=== PATIENT | female | born 1935 | race Two or more races ===

== ENCOUNTER 2023-11-18 12:12 | Inpatient (IN) | payer OTHER ==
[~2023-11-18] VITALS: Ht 167.6 cm; Wt 50.2 kg
[2023-11-18 15:28] LABS: Basophils # (auto) 0 10 ^3/uL (0-0.2); Basophils % (auto) 0.2 % (0.0-2.0); Eosinophils # (auto) 0 10 ^3/uL (0-0.8); Hematocrit 42.5 % (36.0-46.0); Hemoglobin 14.4 g/dL (12.2-16.2); Lymphocytes # (auto) 0.5 10 ^3/uL (0.4-5.4); Mean Corpuscular Hemoglobin 30.1 pg (28.0-32.0); Mean Corpuscular Hgb Conc. 33.8 g/dL (32.0-36.0); Mean Corpuscular Volume 89.1 fL (80.0-100.0); Monocytes # (auto) 0.4 10 ^3/uL (0-1.3); Monocytes % (auto) 6.5 % (0.0-12.0); Neutrophils # (auto) 4.7 10 ^3/uL (1.6-8.6); Neutrophils % (auto) 84.3 % (37.0-80.0); Nucleated Red Blood Cells % 0.1 %; Red Blood Cells 4.77 10^6/uL (4.0-5.20); Red Cell Distribution Width 14.1 % (11.8-14.3); White Blood Cell 5.5 10^3/uL (4.4-10.8)
[2023-11-18 15:37] LABS: Alanine Aminotransferase 17 U/L (7-40); Albumin 4.5 g/dL (3.2-4.8); Alkaline Phosphatase 73 U/L (46-116); Anion Gap 10 (5-15); Aspartate Aminotransferase 22 U/L (13-40); BUN/Creatinine Ratio 57.6 (10.0-20.0); Bilirubin, Total 0.7 mg/dL (0.2-1.0); Blood Urea Nitrogen 34 mg/dL (9-23); Calcium 9.2 mg/dL (8.7-10.4); Carbon Dioxide 24 mmol/L (20-30); Chloride 109 mmol/L (98-107); Glucose 127 mg/dL (74-106); Potassium 3.9 mmol/L (3.5-5.1); Sodium 143 mmol/L (136-145); Total Protein 6.8 g/dL (5.7-8.2)
[2023-11-18] MEDS ORDERED: SODIUM CHLORIDE 0.9% 500 ML IV ONE (16:15)
[2023-11-18] MEDS ORDERED: cefTRIAXone 1GM/50ML D5W 50 ML IV ONE (18:00)
[2023-11-18] MEDS ORDERED: LORazepam 2MG/ML-1ML VIAL IV ONE (18:30)
[2023-11-18] MEDS ORDERED: AZITHROMYCIN 500MG/ 250ML 250 ML IV ONE (18:45)
[2023-11-18 21:00] VITALS: PULSE 66; RESP 18; O2SAT 92
[2023-11-19] MEDS ORDERED: ONDANSETRON HCL 4 MG/2 ML VIAL IV PRN (02:45)
[2023-11-19] MEDS ORDERED: ACETAMINOPHEN 325 MG TAB PO PRN (02:45)
[2023-11-19 07:40] LABS: Urine Epithelial Cast None Seen /hpf (<5)
[2023-11-19 07:53] VITALS: PULSE 54; RESP 22; O2SAT 93
[2023-11-19 08:02] LABS: Urine Bacteria NONE SEEN /hpf (None Seen); Urine Blood Negative /uL (Negative); Urine Clarity Clear (Clear); Urine Color Yellow (Yellow); Urine Mucus FEW (None Seen); Urine Protein, UAD 1+ (Negative); Urine Specific Gravity 1.024 (1.001-1.035); Urine WBC 11 /hpf (0 - 5)
[2023-11-19 08:07] LABS: Amphetamine Screen, Urine Neg (NEGATIVE); Barbiturate Scree,Urine Neg (NEGATIVE); Benzodiazephine Screen, Urine Pos (NEGATIVE); Cocaine Screen, Urine Neg (NEGATIVE)
[2023-11-19 08:08] LABS: Cannabinoid Screen, Urine Neg (NEGATIVE); Opiate Scree,Urine Neg (NEGATIVE); Phencyclidine Screen, Urine Neg (NEGATIVE)
[2023-11-19] MEDS: ENOXAPARIN SOD 40 MG/0.4 ML SYRINGE SC SCH (09:22)
[2023-11-19 10:00] LABS: Base Excess -1.1 mmol/L (-2.0-2.0)
[2023-11-19] MEDS: ALBUTEROL SULF 2.5 MG/0.5ML(0.5%) NEB SOLN NEB SCH ×3 (13:19→22:25)
[2023-11-19] MEDS: IPRATROPIUM BROM 0.5 MG/2.5ML INH SOL NEB SCH ×3 (13:19→22:25)
[2023-11-19] MEDS: LORazepam 2MG/ML-1ML VIAL IV PRN ×2 (14:27→18:36)
[2023-11-19 14:56] VITALS: BP 108/60; PULSE 55; RESP 20; O2SAT 95
[2023-11-19] MEDS: cefTRIAXone 1GM/50ML D5W 50 ML IV SCH (17:56)
[2023-11-19] MEDS: AZITHROMYCIN 500MG/ 250ML 250 ML IV SCH (18:39)
[2023-11-19 19:35] VITALS: PULSE 66; RESP 21; O2SAT 91
[2023-11-19 23:34] VITALS: BP 114/62; TEMP 98.6
[2023-11-20] VITALS (13 sets, daily range): BP systolic 108–123; BP diastolic 55–73; PULSE 62–89; RESP 16–22; TEMP 98–100.1; O2SAT 91–100
[2023-11-20] MEDS: ALBUTEROL SULF 2.5 MG/0.5ML(0.5%) NEB SOLN NEB SCH ×6 (01:41→22:56)
[2023-11-20] MEDS: LORazepam 2MG/ML-1ML VIAL IV PRN ×4 (04:29→22:06)
[2023-11-20] MEDS: IPRATROPIUM BROM 0.5 MG/2.5ML INH SOL NEB SCH ×5 (06:20→22:56)
[2023-11-20 06:59] LABS: Anion Gap 7 (5-15); BUN/Creatinine Ratio 30.3 (10.0-20.0); Blood Urea Nitrogen 20 mg/dL (9-23); Calcium 8.7 mg/dL (8.7-10.4); Carbon Dioxide 23 mmol/L (20-30); Chloride 113 mmol/L (98-107); Glucose 141 mg/dL (74-106); Potassium 3.2 mmol/L (3.5-5.1); Sodium 143 mmol/L (136-145)
[2023-11-20] MEDS: ENOXAPARIN SOD 40 MG/0.4 ML SYRINGE SC SCH (10:00)
[2023-11-20] MEDS ORDERED: POTASSIUM CHLORIDE 20 MEQ, LIDOCAINE 1% (LOCAL ANESTH.) 2 ML in SODIUM CHL 0.9% 100 ML IV ONE (15:00)
[2023-11-20] MEDS ORDERED: CLINIMIX PER PHARMACY 0 ML IV SCH (15:00)
[2023-11-20] MEDS ORDERED: ACETAMINOPHEN 650 MG RECT SUPP PR PRN (15:30)
[2023-11-20] MEDS: D5W/SOD CHL 0.45%/KCL 20MEQ 1,000 ML IV SCH (16:28)
[2023-11-20 16:35] LABS: Magnesium 2.2 mg/dL (1.6-2.6)
[2023-11-20 16:37] LABS: Phosphorus 2.5 mg/dL (2.4-5.1)
[2023-11-20] MEDS: cefTRIAXone 1GM/50ML D5W 50 ML IV SCH (17:16)
[2023-11-20] MEDS: AZITHROMYCIN 500MG/ 250ML 250 ML IV SCH (19:00)
[2023-11-20] MEDS ORDERED: AMINO ACID INFUSION IN D10W 1,000 ML IV NR (20:00)
[2023-11-21] VITALS (20 sets, daily range): BP systolic 104–145; BP diastolic 63–77; PULSE 61–99; RESP 16–30; TEMP 97.8–101.2; O2SAT 91–100
[2023-11-21] MEDS ORDERED: DEXTROSE (50%) 50ML SYRG IV SCH
[2023-11-21] MEDS: ALBUTEROL SULF 2.5 MG/0.5ML(0.5%) NEB SOLN NEB SCH ×6 (01:48→22:17)
[2023-11-21] MEDS: D5W/SOD CHL 0.45%/KCL 20MEQ 1,000 ML IV SCH ×2 (04:20→17:57)
[2023-11-21] MEDS: InsuLIN REG 1unit/0.01ml Soln (100units/ml) SC SCH ×5 (06:00→23:42)
[2023-11-21] MEDS: ACCU-CHEK COMFORT CURVE STRIP VI SCH ×5 (06:00→23:39)
[2023-11-21] MEDS: IPRATROPIUM BROM 0.5 MG/2.5ML INH SOL NEB SCH ×5 (06:08→22:17)
[2023-11-21 08:35] LABS: Alanine Aminotransferase 19 U/L (7-40); Albumin 3.7 g/dL (3.2-4.8); Alkaline Phosphatase 49 U/L (46-116); Anion Gap 7 (5-15); Aspartate Aminotransferase 33 U/L (13-40); BUN/Creatinine Ratio 24.6 (10.0-20.0); Blood Urea Nitrogen 16 mg/dL (9-23); Calcium 8.9 mg/dL (8.5-10.1); Carbon Dioxide 25 mmol/L (20-30); Chloride 116 mmol/L (98-107); Glucose 135 mg/dL (74-106); Phosphorus 1.9 mg/dL (2.4-5.1); Potassium 3.2 mmol/L (3.5-5.1)
[2023-11-21 08:36] LABS: Bilirubin, Total 0.6 mg/dL (0.2-1.0)
[2023-11-21 08:42] LABS: Sodium 148 mmol/L (136-145)
[2023-11-21 09:05] LABS: Magnesium 2.1 mg/dL (1.6-2.6)
[2023-11-21] MEDS ORDERED: HALOPERIDOL LACTATE 5 MG/ML INJ VIAL IM ONE (13:30)
[2023-11-21] MEDS ORDERED: POTASSIUM CHLORIDE 40 MEQ, LIDOCAINE 1% (LOCAL ANESTH.) 4 ML in SODIUM CHL 0.9% 250 ML IV ONE (13:30)
[2023-11-21] MEDS ORDERED: POTASSIUM CHLORIDE 20 MEQ, LIDOCAINE 1% (LOCAL ANESTH.) 2 ML in SODIUM CHL 0.9% 100 ML IV ONE (14:15)
[2023-11-21] MEDS: ENOXAPARIN SOD 40 MG/0.4 ML SYRINGE SC SCH (14:53)
[2023-11-21] MEDS ORDERED: POTASSIUM PHOSPHATE 22 MEQ in SODIUM CHL 0.9% 100 ML IV ONE (17:00)
[2023-11-21] MEDS: cefTRIAXone 1GM/50ML D5W 50 ML IV SCH ×2 (17:58→18:00)
[2023-11-21] MEDS: AMINO ACID INFUSION IN D10W 1,000 ML IV SCH (20:36)
[2023-11-21] MEDS: AZITHROMYCIN 500MG/ 250ML 250 ML IV SCH (21:00)
[2023-11-21] MEDS: LORazepam 2MG/ML-1ML VIAL IV PRN (21:56)
[2023-11-22] VITALS (13 sets, daily range): BP systolic 117–153; BP diastolic 63–86; PULSE 60–81; RESP 18–28; TEMP 96.9–100.1; O2SAT 91–98
[2023-11-22] MEDS: ALBUTEROL SULF 2.5 MG/0.5ML(0.5%) NEB SOLN NEB SCH ×2 (02:18→06:46)
[2023-11-22] MEDS: D5W/SOD CHL 0.45%/KCL 20MEQ 1,000 ML IV SCH ×2 (05:11→20:20)
[2023-11-22] MEDS: ACCU-CHEK COMFORT CURVE STRIP VI SCH ×4 (05:14→23:36)
[2023-11-22] MEDS: InsuLIN REG 1unit/0.01ml Soln (100units/ml) SC SCH ×4 (05:22→23:38)
[2023-11-22] MEDS: IPRATROPIUM BROM 0.5 MG/2.5ML INH SOL NEB SCH (06:46)
[2023-11-22 06:48] LABS: Basophils # (auto) 0 10 ^3/uL (0-0.2); Basophils % (auto) 0.1 % (0.0-2.0); Eosinophils # (auto) 0 10 ^3/uL (0-0.8); Eosinophils % (auto) 0.1 % (0.0-7.0); Hematocrit 38.9 % (36.0-46.0); Hemoglobin 13.2 g/dL (12.2-16.2); Lymphocytes # (auto) 0.4 10 ^3/uL (0.4-5.4); Lymphocytes % (auto) 11.1 % (10.0-50.0); Mean Corpuscular Hemoglobin 30.3 pg (28.0-32.0); Mean Corpuscular Hgb Conc. 33.9 g/dL (32.0-36.0); Mean Corpuscular Volume 89.3 fL (80.0-100.0); Monocytes # (auto) 0.3 10 ^3/uL (0-1.3); Neutrophils # (auto) 2.7 10 ^3/uL (1.6-8.6); Neutrophils % (auto) 80.7 % (37.0-80.0); Nucleated Red Blood Cells % 0.1 %; Red Blood Cells 4.35 10^6/uL (4.0-5.20); White Blood Cell 3.4 10^3/uL (4.4-10.8)
[2023-11-22 07:05] LABS: Alanine Aminotransferase 24 U/L (7-40); Albumin 3.7 g/dL (3.2-4.8); Alkaline Phosphatase 49 U/L (46-116); Anion Gap 9 (5-15); Aspartate Aminotransferase 33 U/L (13-40); BUN/Creatinine Ratio 24.5 (10.0-20.0); Bilirubin, Total 0.6 mg/dL (0.2-1.0); Blood Urea Nitrogen 13 mg/dL (9-23); Calcium 8.1 mg/dL (8.7-10.4); Carbon Dioxide 22 mmol/L (20-30); Chloride 116 mmol/L (98-107); Glucose 193 mg/dL (74-106); Phosphorus 1.3 mg/dL (2.4-5.1); Potassium 2.9 mmol/L (3.5-5.1); Sodium 147 mmol/L (136-145); Total Protein 6.1 g/dL (5.7-8.2)
[2023-11-22] MEDS ORDERED: ALBUTEROL SULF 2.5 MG/0.5ML(0.5%) NEB SOLN NEB PRN (10:00)
[2023-11-22] MEDS: ENOXAPARIN SOD 40 MG/0.4 ML SYRINGE SC SCH (10:00)
[2023-11-22] MEDS ORDERED: IPRATROPIUM BROM 0.5 MG/2.5ML INH SOL NEB PRN (10:00)
[2023-11-22] MEDS ORDERED: POTASSIUM PHOSPHATE 44 MEQ in D5W 5% 250 ML IV ONE (10:45)
[2023-11-22] MEDS ORDERED: CALCIUM GLUC 1,000mg/50ml-NS 50 ML IV ONE (10:45)
[2023-11-22 17:00] LABS: Alanine Aminotransferase 28 U/L (7-40); Albumin 3.9 g/dL (3.2-4.8); Alkaline Phosphatase 51 U/L (46-116); Anion Gap 6 (5-15); Aspartate Aminotransferase 46 U/L (13-40); Blood Urea Nitrogen 13 mg/dL (9-23); Calcium 8.6 mg/dL (8.7-10.4); Carbon Dioxide 27 mmol/L (20-30); Chloride 113 mmol/L (98-107); Glucose 123 mg/dL (74-106); Potassium 3.6 mmol/L (3.5-5.1); Sodium 146 mmol/L (136-145)
[2023-11-22 17:01] LABS: Bilirubin, Total 0.7 mg/dL (0.2-1.0); Total Protein 6.1 g/dL (5.7-8.2)
[2023-11-22] MEDS: cefTRIAXone 1GM/50ML D5W 50 ML IV SCH (18:00)
[2023-11-22] MEDS: AMINO ACID INFUSION IN D10W 1,000 ML IV SCH (20:15)
[2023-11-22] MEDS: AZITHROMYCIN 500MG/ 250ML 250 ML IV SCH (21:06)
[2023-11-23] VITALS (7 sets, daily range): BP systolic 97–138; BP diastolic 43–81; PULSE 68–105; RESP 19–22; TEMP 97.8–98.6; O2SAT 94–96
[2023-11-23] MEDS: D5W/SOD CHL 0.45%/KCL 20MEQ 1,000 ML IV SCH ×2 (02:16→23:00)
[2023-11-23] MEDS: InsuLIN REG 1unit/0.01ml Soln (100units/ml) SC SCH ×3 (05:31→18:00)
[2023-11-23] MEDS: ACCU-CHEK COMFORT CURVE STRIP VI SCH ×3 (05:31→18:40)
[2023-11-23 06:34] LABS: Alanine Aminotransferase 41 U/L (7-40); Alkaline Phosphatase 49 U/L (46-116); Anion Gap 10 (5-15); BUN/Creatinine Ratio 22.9 (10.0-20.0); Blood Urea Nitrogen 11 mg/dL (9-23); Calcium 8.4 mg/dL (8.7-10.4); Carbon Dioxide 23 mmol/L (20-30); Chloride 110 mmol/L (98-107); Glucose 109 mg/dL (74-106); Potassium 3.2 mmol/L (3.5-5.1); Sodium 143 mmol/L (136-145)
[2023-11-23 06:35] LABS: Albumin 3.6 g/dL (3.2-4.8); Aspartate Aminotransferase 61 U/L (13-40); Bilirubin, Total 0.7 mg/dL (0.2-1.0); Total Protein 5.8 g/dL (5.7-8.2)
[2023-11-23 07:23] LABS: Magnesium 1.7 mg/dL (1.6-2.6)
[2023-11-23] MEDS: ENOXAPARIN SOD 40 MG/0.4 ML SYRINGE SC SCH (08:36)
[2023-11-23] MEDS ORDERED: MAGNESIUM SULFATE 1GM/100ML 100 ML IV ONE (13:00)
[2023-11-23] MEDS ORDERED: POTASSIUM CHLORIDE 40 MEQ, LIDOCAINE 1% (LOCAL ANESTH.) 4 ML in SODIUM CHL 0.9% 250 ML IV ONE (13:45)
[2023-11-23] MEDS ORDERED: POTASSIUM PHOSPHATE 44 MEQ in D5W 5% 250 ML IV ONE (14:00)
[2023-11-23] MEDS: LORazepam 2MG/ML-1ML VIAL IV PRN (18:40)
[2023-11-23] MEDS: cefTRIAXone 1GM/50ML D5W 50 ML IV SCH (18:40)
[2023-11-23] MEDS ORDERED: FUROSEMIDE 20 MG/2 ML VIAL IV ONE (19:30)
[2023-11-23] MEDS: AMINO ACID INFUSION IN D10W 1,000 ML IV SCH (20:23)
[2023-11-23] MEDS: AZITHROMYCIN 500MG/ 250ML 250 ML IV SCH (21:57)
[2023-11-24] VITALS (12 sets, daily range): BP systolic 119–146; BP diastolic 66–94; PULSE 68–83; RESP 16–24; TEMP 96.8–99; O2SAT 85–99
[2023-11-24] MEDS: ACCU-CHEK COMFORT CURVE STRIP VI SCH ×4 (05:52→17:26)
[2023-11-24] MEDS: InsuLIN REG 1unit/0.01ml Soln (100units/ml) SC SCH ×4 (05:57→17:26)
[2023-11-24 06:52] LABS: Alanine Aminotransferase 59 U/L (7-40); Albumin 3.5 g/dL (3.2-4.8); Alkaline Phosphatase 49 U/L (46-116); Anion Gap 9 (5-15); Aspartate Aminotransferase 64 U/L (13-40); BUN/Creatinine Ratio 18.9 (10.0-20.0); Blood Urea Nitrogen 10 mg/dL (9-23); Calcium 8.2 mg/dL (8.7-10.4); Carbon Dioxide 24 mmol/L (20-30); Chloride 107 mmol/L (98-107); Glucose 188 mg/dL (74-106); Magnesium 1.8 mg/dL (1.6-2.6); Potassium 4.1 mmol/L (3.5-5.1); Sodium 140 mmol/L (136-145)
[2023-11-24 06:53] LABS: Bilirubin, Total 0.5 mg/dL (0.2-1.0); Phosphorus 2.5 mg/dL (2.4-5.1); Total Protein 5.7 g/dL (5.7-8.2)
[2023-11-24 10:00] LABS: Basophils # (auto) 0 10 ^3/uL (0-0.2); Basophils % (auto) 0.3 % (0.0-2.0); Eosinophils # (auto) 0.1 10 ^3/uL (0-0.8); Eosinophils % (auto) 1.4 % (0.0-7.0); Hematocrit 37.9 % (36.0-46.0); Hemoglobin 12.8 g/dL (12.2-16.2); Lymphocytes # (auto) 0.5 10 ^3/uL (0.4-5.4); Lymphocytes % (auto) 8.5 % (10.0-50.0); Mean Corpuscular Hemoglobin 29.7 pg (28.0-32.0); Mean Corpuscular Hgb Conc. 33.8 g/dL (32.0-36.0); Mean Corpuscular Volume 87.9 fL (80.0-100.0); Monocytes # (auto) 0.4 10 ^3/uL (0-1.3); Monocytes % (auto) 7.3 % (0.0-12.0); Neutrophils # (auto) 4.9 10 ^3/uL (1.6-8.6); Neutrophils % (auto) 82.5 % (37.0-80.0); Nucleated Red Blood Cells % 0.1 %; Red Blood Cells 4.31 10^6/uL (4.0-5.20); Red Cell Distribution Width 14.2 % (11.8-14.3)
[2023-11-24] MEDS ORDERED: IOHEXOL 350 MG/ML 100ML IJ ONE (12:06)
[2023-11-24] MEDS ORDERED: SODIUM PHOSPHATES 20 MEQ in SODIUM CHL 0.9% 100 ML IV ONE (12:15)
[2023-11-24] MEDS: IPRATROPIUM BROM 0.5 MG/2.5ML INH SOL NEB SCH ×2 (12:17→18:08)
[2023-11-24] MEDS: ALBUTEROL SULF 2.5 MG/0.5ML(0.5%) NEB SOLN NEB SCH ×2 (12:17→18:08)
[2023-11-24] MEDS: PIPERACILLIN-TAZOB 3.375GM 100 ML IV SCH ×3 (12:24→22:53)
[2023-11-24] MEDS: ENOXAPARIN SOD 40 MG/0.4 ML SYRINGE SC SCH (12:24)
[2023-11-24] MEDS: D5W/SOD CHL 0.45%/KCL 20MEQ 1,000 ML IV SCH (15:19)
[2023-11-24] MEDS: AMINO ACID INFUSION IN D10W 1,000 ML IV SCH (20:38)
[2023-11-25] VITALS (17 sets, daily range): BP systolic 98–128; BP diastolic 53–86; PULSE 60–97; RESP 16–52; TEMP 97.4–98; O2SAT 92–98
[2023-11-25] MEDS: IPRATROPIUM BROM 0.5 MG/2.5ML INH SOL NEB SCH ×4 (00:05→19:22)
[2023-11-25] MEDS: ALBUTEROL SULF 2.5 MG/0.5ML(0.5%) NEB SOLN NEB SCH ×4 (00:05→19:21)
[2023-11-25] MEDS: D5W/SOD CHL 0.45%/KCL 20MEQ 1,000 ML IV SCH ×2 (01:40→15:00)
[2023-11-25] MEDS: PIPERACILLIN-TAZOB 3.375GM 100 ML IV SCH ×3 (05:53→21:50)
[2023-11-25] MEDS: ACCU-CHEK COMFORT CURVE STRIP VI SCH ×4 (06:01→18:09)
[2023-11-25 06:02] LABS: Hematocrit 35.6 % (36.0-46.0); Hemoglobin 12.2 g/dL (12.2-16.2); Mean Corpuscular Hemoglobin 30.1 pg (28.0-32.0); Mean Corpuscular Hgb Conc. 34.1 g/dL (32.0-36.0); Mean Corpuscular Volume 88.3 fL (80.0-100.0); Red Blood Cells 4.04 10^6/uL (4.0-5.20); Red Cell Distribution Width 14.1 % (11.8-14.3); White Blood Cell 5.3 10^3/uL (4.4-10.8)
[2023-11-25] MEDS: InsuLIN REG 1unit/0.01ml Soln (100units/ml) SC SCH ×4 (06:04→18:00)
[2023-11-25 06:05] LABS: Alanine Aminotransferase 61 U/L (7-40); Alkaline Phosphatase 49 U/L (46-116); Anion Gap 11 (5-15); Aspartate Aminotransferase 59 U/L (13-40); BUN/Creatinine Ratio 24.6 (10.0-20.0); Blood Urea Nitrogen 14 mg/dL (9-23); Calcium 8.3 mg/dL (8.7-10.4); Carbon Dioxide 24 mmol/L (20-30); Chloride 106 mmol/L (98-107); Glucose 194 mg/dL (74-106); Magnesium 1.8 mg/dL (1.6-2.6); Potassium 3.2 mmol/L (3.5-5.1); Sodium 141 mmol/L (136-145)
[2023-11-25 06:06] LABS: Albumin 3.4 g/dL (3.2-4.8); Bilirubin, Total 0.9 mg/dL (0.2-1.0); Phosphorus 2.5 mg/dL (2.4-5.1); Total Protein 5.5 g/dL (5.7-8.2)
[2023-11-25 07:24] LABS: Basophils % (manual) 0 (0.0-2.0); Blast Cells 0; Myelocytes % 0; Promyelocytes % 0; Reactive Lymphocytes 0
[2023-11-25 08:21] LABS: Band Neutrophils % (manual) 9; Eosinophils % (manual) 3 (0-7); Lymphocytes % (manual) 12 (10.0-50.0); Metamyelocytes % 2; Monocytes % (manual) 2 (0-12); Platelet Estimate Adequate
[2023-11-25] MEDS: ENOXAPARIN SOD 40 MG/0.4 ML SYRINGE SC SCH (09:50)
[2023-11-25] MEDS: LORazepam 2MG/ML-1ML VIAL IV PRN ×2 (11:08→22:19)
[2023-11-25] MEDS ORDERED: IPRATROPIUM BROM 0.5 MG/2.5ML INH SOL NEB PRN (11:15)
[2023-11-25] MEDS ORDERED: ALBUTEROL SULF 2.5 MG/0.5ML(0.5%) NEB SOLN NEB PRN (11:15)
[2023-11-25] MEDS ORDERED: FUROSEMIDE 20 MG/2 ML VIAL IV ONE (12:00)
[2023-11-25] MEDS ORDERED: POTASSIUM CHL 20MEQ/100ML 100 ML IV ONE (15:00)
[2023-11-25 16:15] LABS: Triglycerides 100 mg/dL (< 150)
[2023-11-25 16:16] LABS: LDL Cholesterol 70 mg/dL (< 100)
[2023-11-25 16:17] LABS: Cholesterol 109 mg/dL (< 200); HDL Cholesterol 20 mg/dL (40-59)
[2023-11-25] MEDS: MAGNESIUM SULFATE 1GM/100ML 100 ML IV SCH ×2 (17:47→19:08)
[2023-11-25] MEDS ORDERED: MAGNESIUM SULFATE 1GM/100ML 100 ML IV ONE (19:08)
[2023-11-25] MEDS: AMINO ACID INFUSION IN D10W 1,000 ML IV SCH (20:22)
[2023-11-25] MEDS: methylPREDNISolone SOD SUCC 40 MG/ML VL IV SCH (21:50)
[2023-11-25] MEDS: METOPROLOL TARTRATE 25 MG TAB PO SCH (22:00)
[2023-11-26] VITALS (15 sets, daily range): BP systolic 95–119; BP diastolic 47–58; PULSE 75–93; RESP 16–36; TEMP 97.1–98.2; O2SAT 92–98
[2023-11-26] MEDS: ALBUTEROL SULF 2.5 MG/0.5ML(0.5%) NEB SOLN NEB SCH ×4 (00:01→18:18)
[2023-11-26] MEDS: IPRATROPIUM BROM 0.5 MG/2.5ML INH SOL NEB SCH ×4 (00:01→18:18)
[2023-11-26] MEDS: ACCU-CHEK COMFORT CURVE STRIP VI SCH ×5 (00:44→23:50)
[2023-11-26] MEDS: InsuLIN REG 1unit/0.01ml Soln (100units/ml) SC SCH ×5 (00:48→23:51)
[2023-11-26] MEDS: D5W/SOD CHL 0.45%/KCL 20MEQ 1,000 ML IV SCH ×3 (04:20→11:05)
[2023-11-26 06:18] LABS: Hematocrit 33.6 % (36.0-46.0); Hemoglobin 11.6 g/dL (12.2-16.2); Mean Corpuscular Hgb Conc. 34.4 g/dL (32.0-36.0); Mean Corpuscular Volume 87.1 fL (80.0-100.0); Red Blood Cells 3.86 10^6/uL (4.0-5.20); Red Cell Distribution Width 13.7 % (11.8-14.3); White Blood Cell 4.7 10^3/uL (4.4-10.8)
[2023-11-26 06:39] LABS: Alanine Aminotransferase 66 U/L (7-40); Alkaline Phosphatase 52 U/L (46-116); Anion Gap 10 (5-15); Blood Urea Nitrogen 10 mg/dL (9-23); Calcium 8.5 mg/dL (8.5-10.1); Carbon Dioxide 23 mmol/L (20-30); Chloride 105 mmol/L (98-107); Glucose 190 mg/dL (74-106); Potassium 3.1 mmol/L (3.5-5.1); Sodium 138 mmol/L (136-145)
[2023-11-26 06:40] LABS: Albumin 3.5 g/dL (3.2-4.8); Aspartate Aminotransferase 56 U/L (13-40); BUN/Creatinine Ratio 17.5 (10.0-20.0); Bilirubin, Total 0.7 mg/dL (0.2-1.0); Phosphorus 2.5 mg/dL (2.4-5.1); Total Protein 5.8 g/dL (5.7-8.2)
[2023-11-26] MEDS: PIPERACILLIN-TAZOB 3.375GM 100 ML IV SCH ×3 (06:43→22:20)
[2023-11-26] MEDS: LORazepam 2MG/ML-1ML VIAL IV PRN ×3 (06:43→21:32)
[2023-11-26 06:58] LABS: Basophils % (manual) 0 (0.0-2.0); Blast Cells 0; Eosinophils % (manual) 0 (0-7); Myelocytes % 0; Promyelocytes % 0; Reactive Lymphocytes 0
[2023-11-26 08:03] LABS: Band Neutrophils % (manual) 10; Lymphocytes % (manual) 8 (10.0-50.0); Metamyelocytes % 2; Monocytes % (manual) 3 (0-12); Smudge Cells 1 /100 WBC
[2023-11-26 08:04] LABS: Platelet Estimate Adequate
[2023-11-26] MEDS: ASPirin 81 mg TAB PO SCH (10:00)
[2023-11-26] MEDS: METOPROLOL TARTRATE 25 MG TAB PO SCH ×2 (10:00→21:31)
[2023-11-26] MEDS: ENOXAPARIN SOD 40 MG/0.4 ML SYRINGE SC SCH (10:11)
[2023-11-26] MEDS: methylPREDNISolone SOD SUCC 40 MG/ML VL IV SCH ×2 (10:12→21:31)
[2023-11-26 12:00] LABS: Magnesium 2.4 mg/dL (1.6-2.6)
[2023-11-26] MEDS ORDERED: POTASSIUM CHLORIDE 40 MEQ, LIDOCAINE 1% (LOCAL ANESTH.) 4 ML in SODIUM CHL 0.9% 250 ML IV ONE (12:15)
[2023-11-26] MEDS: AMINO ACID INFUSION IN D10W 1,000 ML IV SCH (19:58)
[2023-11-27] VITALS (15 sets, daily range): BP systolic 114–146; BP diastolic 58–130; PULSE 75–133; RESP 16–26; TEMP 98–98.2; O2SAT 85–98
[2023-11-27] MEDS: ALBUTEROL SULF 2.5 MG/0.5ML(0.5%) NEB SOLN NEB SCH ×4 (00:01→18:05)
[2023-11-27] MEDS: IPRATROPIUM BROM 0.5 MG/2.5ML INH SOL NEB SCH ×4 (00:02→18:05)
[2023-11-27] MEDS: LORazepam 2MG/ML-1ML VIAL IV PRN ×2 (04:48→10:04)
[2023-11-27] MEDS: PIPERACILLIN-TAZOB 3.375GM 100 ML IV SCH ×3 (05:45→21:55)
[2023-11-27] MEDS: ACCU-CHEK COMFORT CURVE STRIP VI SCH ×3 (06:14→18:12)
[2023-11-27] MEDS: InsuLIN REG 1unit/0.01ml Soln (100units/ml) SC SCH ×3 (06:15→18:11)
[2023-11-27 06:38] LABS: Alanine Aminotransferase 81 U/L (7-40); Alkaline Phosphatase 50 U/L (46-116); Anion Gap 10 (5-15); Calcium 8.5 mg/dL (8.7-10.4); Carbon Dioxide 20 mmol/L (20-30); Chloride 109 mmol/L (98-107); Glucose 187 mg/dL (74-106); Magnesium 2.1 mg/dL (1.6-2.6); Potassium 3.8 mmol/L (3.5-5.1); Sodium 139 mmol/L (136-145)
[2023-11-27 06:39] LABS: Albumin 3.4 g/dL (3.2-4.8); Aspartate Aminotransferase 82 U/L (13-40); BUN/Creatinine Ratio 37.5 (10.0-20.0); Bilirubin, Total 0.6 mg/dL (0.2-1.0); Blood Urea Nitrogen 21 mg/dL (9-23); Phosphorus 2.6 mg/dL (2.4-5.1); Total Protein 5.4 g/dL (5.7-8.2)
[2023-11-27 07:03] LABS: Basophils # (auto) 0 10 ^3/uL (0-0.2); Basophils % (auto) 0.1 % (0.0-2.0); Eosinophils # (auto) 0 10 ^3/uL (0-0.8); Hematocrit 32.3 % (36.0-46.0); Hemoglobin 10.8 g/dL (12.2-16.2); Lymphocytes # (auto) 0.4 10 ^3/uL (0.4-5.4); Lymphocytes % (auto) 4.1 % (10.0-50.0); Mean Corpuscular Hemoglobin 29.4 pg (28.0-32.0); Mean Corpuscular Hgb Conc. 33.6 g/dL (32.0-36.0); Mean Corpuscular Volume 87.6 fL (80.0-100.0); Monocytes # (auto) 0.6 10 ^3/uL (0-1.3); Monocytes % (auto) 6.5 % (0.0-12.0); Neutrophils # (auto) 7.6 10 ^3/uL (1.6-8.6); Neutrophils % (auto) 89.3 % (37.0-80.0); Nucleated Red Blood Cells % 0.1 %; Red Blood Cells 3.69 10^6/uL (4.0-5.20); Red Cell Distribution Width 13.6 % (11.8-14.3); White Blood Cell 8.5 10^3/uL (4.4-10.8)
[2023-11-27] MEDS: D5W/SOD CHL 0.45%/KCL 20MEQ 1,000 ML IV SCH ×2 (07:03→20:38)
[2023-11-27] MEDS: METOPROLOL TARTRATE 25 MG TAB PO SCH ×2 (10:00→21:56)
[2023-11-27] MEDS: ASPirin 81 mg TAB PO SCH (10:00)
[2023-11-27] MEDS: methylPREDNISolone SOD SUCC 40 MG/ML VL IV SCH ×2 (10:01→21:55)
[2023-11-27] MEDS: ENOXAPARIN SOD 40 MG/0.4 ML SYRINGE SC SCH (10:03)
[2023-11-27] MEDS ORDERED: cloNIDine 0.2 mg/24hr 7DAY PATCH TD ONE (11:30)
[2023-11-27] MEDS ORDERED: hydrALAZINE HCL 20 MG/ML VL IV PRN (12:30)
[2023-11-27] MEDS ORDERED: HALOPERIDOL LACTATE 5 MG/ML INJ VIAL IM ONE (14:00)
[2023-11-27] MEDS ORDERED: MET25T PO (15:18)
[2023-11-27] MEDS ORDERED: IPR002IS NEB (15:18)
[2023-11-27] MEDS ORDERED: ALB5IS NEB (15:18)
[2023-11-27] MEDS: AMINO ACID INFUSION IN D10W 1,000 ML IV SCH (20:00)
[2023-11-28] VITALS (16 sets, daily range): BP systolic 86–152; BP diastolic 41–82; PULSE 68–105; RESP 16–36; TEMP 97.9–98.7; O2SAT 83–96
[2023-11-28] MEDS: ALBUTEROL SULF 2.5 MG/0.5ML(0.5%) NEB SOLN NEB SCH ×4 (00:15→19:04)
[2023-11-28] MEDS: IPRATROPIUM BROM 0.5 MG/2.5ML INH SOL NEB SCH ×4 (00:15→19:04)
[2023-11-28] MEDS: ACCU-CHEK COMFORT CURVE STRIP VI SCH ×5 (00:34→23:33)
[2023-11-28] MEDS: InsuLIN REG 1unit/0.01ml Soln (100units/ml) SC SCH ×5 (00:40→23:35)
[2023-11-28] MEDS: LORazepam 2MG/ML-1ML VIAL IV PRN ×4 (01:27→21:38)
[2023-11-28] MEDS: PIPERACILLIN-TAZOB 3.375GM 100 ML IV SCH ×3 (05:20→23:06)
[2023-11-28 07:40] LABS: Alanine Aminotransferase 74 U/L (7-40); Alkaline Phosphatase 54 U/L (46-116); Anion Gap 12 (5-15); BUN/Creatinine Ratio 47.5 (10.0-20.0); Blood Urea Nitrogen 28 mg/dL (9-23); Calcium 8.6 mg/dL (8.7-10.4); Carbon Dioxide 21 mmol/L (20-30); Chloride 109 mmol/L (98-107); Glucose 197 mg/dL (74-106); Magnesium 2.1 mg/dL (1.6-2.6); Potassium 3.6 mmol/L (3.5-5.1); Sodium 142 mmol/L (136-145)
[2023-11-28 07:41] LABS: Aspartate Aminotransferase 51 U/L (13-40); Bilirubin, Total 0.5 mg/dL (0.2-1.0); Phosphorus 2.2 mg/dL (2.4-5.1); Total Protein 5.6 g/dL (5.7-8.2)
[2023-11-28 08:01] LABS: Albumin 3.4 g/dL (3.2-4.8)
[2023-11-28] MEDS: METOPROLOL TARTRATE 25 MG TAB PO SCH ×2 (09:35→22:00)
[2023-11-28] MEDS: ASPirin 81 mg TAB PO SCH (09:35)
[2023-11-28] MEDS: D5W/SOD CHL 0.45%/KCL 20MEQ 1,000 ML IV SCH ×2 (09:45→23:51)
[2023-11-28] MEDS: ENOXAPARIN SOD 40 MG/0.4 ML SYRINGE SC SCH (10:10)
[2023-11-28] MEDS: methylPREDNISolone SOD SUCC 40 MG/ML VL IV SCH ×2 (11:45→22:02)
[2023-11-28] MEDS: MORPHINE SULFATE INJ 2 MG/ml SYRG IV PRN ×3 (12:08→22:06)
[2023-11-28] MEDS: AMINO ACID INFUSION IN D10W 1,000 ML IV SCH (13:00)
[2023-11-28] MEDS ORDERED: CLON0.2D13 TD (13:58)
[2023-11-28] MEDS ORDERED: POTASSIUM PHOSP 22MEQ(15MMOLE) in NS 100 ML IV ONE (18:15)
[2023-11-28] MEDS ORDERED: LORazepam 2MG/ML-1ML VIAL IV ONE (23:30)
[2023-11-29] VITALS (17 sets, daily range): BP systolic 127–159; BP diastolic 61–75; PULSE 79–119; RESP 20–42; TEMP 98.2–98.7; O2SAT 83–99
[2023-11-29] MEDS: LORazepam 2MG/ML-1ML VIAL IV PRN ×6 (04:37→22:56)
[2023-11-29] MEDS: MORPHINE SULFATE INJ 2 MG/ml SYRG IV PRN ×7 (04:50→23:48)
[2023-11-29] MEDS: PIPERACILLIN-TAZOB 3.375GM 100 ML IV SCH ×3 (05:13→22:00)
[2023-11-29] MEDS: ACCU-CHEK COMFORT CURVE STRIP VI SCH ×3 (05:13→18:52)
[2023-11-29] MEDS: InsuLIN REG 1unit/0.01ml Soln (100units/ml) SC SCH ×3 (05:18→18:00)
[2023-11-29] MEDS: ALBUTEROL SULF 2.5 MG/0.5ML(0.5%) NEB SOLN NEB SCH ×4 (05:52→18:45)
[2023-11-29] MEDS: IPRATROPIUM BROM 0.5 MG/2.5ML INH SOL NEB SCH ×4 (05:53→18:45)
[2023-11-29] MEDS: METOPROLOL TARTRATE 25 MG TAB PO SCH ×2 (10:00→22:00)
[2023-11-29] MEDS: ASPirin 81 mg TAB PO SCH (10:00)
[2023-11-29 10:08] LABS: Potassium 3.2 mmol/L (3.5-5.1)
[2023-11-29 10:10] LABS: Calcium 8.3 mg/dL (8.5-10.1)
[2023-11-29 10:16] LABS: Albumin 2.9 g/dL (3.2-4.8)
[2023-11-29 10:17] LABS: Phosphorus 1.5 mg/dL (2.4-5.1)
[2023-11-29 10:30] LABS: Magnesium 1.9 mg/dL (1.6-2.6)
[2023-11-29] MEDS: ENOXAPARIN SOD 40 MG/0.4 ML SYRINGE SC SCH (10:37)
[2023-11-29] MEDS: methylPREDNISolone SOD SUCC 40 MG/ML VL IV SCH ×2 (10:38→22:00)
[2023-11-29] MEDS: D5W/SOD CHL 0.45%/KCL 20MEQ 1,000 ML IV SCH (12:20)
[2023-11-29] MEDS ORDERED: POTASSIUM PHOSPHATE 44 MEQ in D5W 5% 250 ML IV ONE (12:30)
[2023-11-29] MEDS ORDERED: LABETALOL HCL 5 MG/ML 4ML SYRINGE IV ONE ×2 (12:38→12:45)
[2023-11-29] MEDS ORDERED: AMIODARONE BOLUS KIT 100 ML IV ONE (13:15)
[2023-11-29] MEDS: AMINO ACID INFUSION IN D10W 1,000 ML IV SCH (16:32)
[2023-11-30] MEDS: LORazepam 2MG/ML-1ML VIAL IV PRN ×4 (00:54→09:59)
[2023-11-30] MEDS: D5W/SOD CHL 0.45%/KCL 20MEQ 1,000 ML IV SCH (01:40)
[2023-11-30] MEDS: MORPHINE SULFATE INJ 2 MG/ml SYRG IV PRN ×3 (02:02→12:30)
[2023-11-30] MEDS: PIPERACILLIN-TAZOB 3.375GM 100 ML IV SCH (05:49)
[2023-11-30] MEDS: InsuLIN REG 1unit/0.01ml Soln (100units/ml) SC SCH ×3 (05:50→11:25)
[2023-11-30] MEDS: ACCU-CHEK COMFORT CURVE STRIP VI SCH ×3 (05:50→11:25)
[2023-11-30 07:34] VITALS: BP 75/41; PULSE 90; PULSE 94; RESP 25; RESP 27; TEMP 97.8; O2SAT 35
[2023-11-30 08:15] VITALS: PULSE 93
[2023-11-30] MEDS: methylPREDNISolone SOD SUCC 40 MG/ML VL IV SCH (09:56)
[2023-11-30] MEDS: METOPROLOL TARTRATE 25 MG TAB PO SCH (09:56)
[2023-11-30] MEDS: ASPirin 81 mg TAB PO SCH (09:56)
[2023-11-30] MEDS: ENOXAPARIN SOD 40 MG/0.4 ML SYRINGE SC SCH (09:57)
[2023-11-30] MEDS ORDERED: POTASSIUM PHOSPHATE 44 MEQ in D5W 5% 250 ML IV ONE (10:15)
[2023-11-30 10:49] VITALS: BP 75/41; PULSE 94; RESP 27; TEMP 97.8; O2SAT 58
[2023-11-30 11:00] VITALS: BP 75/41; PULSE 94; RESP 27; TEMP 97.8; O2SAT 58
[2023-11-30 13:28] VITALS: BP 60/42; PULSE 104; RESP 28
== END 2023-11-30 13:36 | disposition hospice, home (50) | DRG 193 ==
LOC: ER 12:12 → EDBD 12:12 → OVERFLOW 11-19 02:53 → WEST WING 11-19 23:45 → EAST 11-20 16:55 → TELE-EAST 11-26 05:19 → TELE-CENTR 11-29 16:41 → TELE-EAST 11-29 16:50
PROVIDERS: ADMIT Nurse Practitioner; ATTEND Family Medicine
PROC: 05HA33Z Insertion of Infusion Device into Left Brachial Vein, Percutaneous Approach (ICD-10-PCS; 2023-11-25)
PROC: B54NZZA Ultrasonography of Left Upper Extremity Veins, Guidance (ICD-10-PCS; 2023-11-25)
PROC: 5A09357 Assistance with Respiratory Ventilation, Less than 24 Consecutive Hours, Continuous Positive Airway Pressure (ICD-10-PCS; principal; 2023-11-29)
DX: J18.9 Pneumonia, unspecified organism (principal); J96.01 Acute respiratory failure with hypoxia; Z68.1 Body mass index [BMI] 19.9 or less, adult; J90 Pleural effusion, not elsewhere classified; Z51.5 Encounter for palliative care; Z66 Do not resuscitate; R62.7 Adult failure to thrive; E86.0 Dehydration; D63.8 Anemia in other chronic diseases classified elsewhere; E11.9 Type 2 diabetes mellitus without complications; E78.5 Hyperlipidemia, unspecified; R74.8 Abnormal levels of other serum enzymes; F03.90 Unspecified dementia, unspecified severity, without behavioral disturbance, psychotic disturbance, mood disturbance, and anxiety; E87.6 Hypokalemia; I48.91 Unspecified atrial fibrillation; I10 Essential (primary) hypertension; J84.10 Pulmonary fibrosis, unspecified; Z78.1 Physical restraint status; Z79.899 Other long term (current) drug therapy; Z80.1 Family history of malignant neoplasm of trachea, bronchus and lung; Z82.49 Family history of ischemic heart disease and other diseases of the circulatory system; Z86.73 Personal history of transient ischemic attack (TIA), and cerebral infarction without residual deficits; Z87.891 Personal history of nicotine dependence
CPT/HCPCS: 36415; 36600; 71045; 71250; 80048; 80053; 80061; 80069; 80307; 81001; 82805; 82962; 83036; 83605; 83735; 83880; 84100; 84443; 84484; 85007; 85025; 85027; 87040; 92610; 93005; 93306; 94640; 94660; 96365; 96367; 96375; G0378; J1815; J2001; J2543; J3480; J3490; J7042; J7060